=== PATIENT | female | born 1985 | race Caucasian/White ===

== ENCOUNTER 2024-02-12 20:34 | Emergency (ER) | payer OTHER ==
[2024-02-12 20:40] VITALS: TEMP 97.8; BMI 27.4
[2024-02-12 21:36] LABS: PH,URINE 5.5 (5.0-8.0); URINE APPEARANCE Error; URINE BILIRUBIN NEGATIVE (NEGATIVE); URINE COLOR YELLOW; URINE GLUCOSE (UA) NEGATIVE (NEGATIVE); URINE KETONE NEGATIVE (NEGATIVE); URINE LEUK ESTERASE NEGATIVE (NEGATIVE); URINE NITRITE NEGATIVE (NEGATIVE); URINE PROTEIN NEGATIVE (NEGATIVE); URINE UROBILINOGEN 0.2 mg/dL (0.2-1.0)
[2024-02-12 22:14] LABS: HCG,QUALITATIVE URINE Negative
[2024-02-12] MEDS ORDERED: ACETAMINOPHEN 325 MG TABLET (FP) ONE (23:06)
[2024-02-12 23:09] VITALS: BP 101/67; PULSE 60; RESP 16
[2024-02-12] MEDS: ACETAMINOPHEN 325 MG TABLET (FP) PO ONE (23:10)
== END 2024-02-13 01:07 | disposition home or self-care (01) ==
LOC: JER 20:34
DX: S06.9X9A Unspecified intracranial injury with loss of consciousness of unspecified duration, initial encounter (principal); S00.03XA Contusion of scalp, initial encounter; S30.0XXA Contusion of lower back and pelvis, initial encounter; W01.198A Fall on same level from slipping, tripping and stumbling with subsequent striking against other object, initial encounter; Y93.01 Activity, walking, marching and hiking
CPT/HCPCS: 70450-TC; 71046-TC-FY; 72125-TC; 72170-TC-FY; 72220-TC-FY; 81003; 84703; 99285-25